=== PATIENT | female | born 1955 | race Caucasian/White ===

== ENCOUNTER 2016-09-20 22:19 | Emergency (ER) | payer MEDICARE ==
[~2016-09-20] VITALS: Ht 165.1 cm; Wt 84.0 kg
[~2016-09-20 22:19] MED LIST: LORA-392 PO; LORTA5 PO; METHO500 PO; PROM1SUP7 RECTAL; PROP20TA3 PO; ZANTTAB9 PO; ZOFR4TAB3 SL; ZOLP5TAB3 PO
[2016-09-20 23:00] VITALS: BP 198/84; PULSE 60; RESP 20; TEMP 98.6; O2SAT 97
[2016-09-20 23:20] VITALS: BP 174/84; PULSE 60; RESP 18; O2SAT 98
[2016-09-20] MEDS ORDERED: ONDANSETRON HCL 4 MG/2 ML VIAL IV PUSH ONE (23:45)
[2016-09-20] MEDS ORDERED: SODIUM CHLORIDE 0.9% FLUSH 10 ML FLUSH IVF PRN (23:45)
[2016-09-21 00:05] VITALS: O2SAT 98
--- NOTE | 2016-09-21 00:11 | RADRPT ---
EXAM DATE/TIME: 09/20/2016 23:46 [place] COMPARISON: CHEST SINGLE AP, September 17, 2014, 8:50. INDICATIONS : Chest discomfort, nausea for 3 days MEDICAL HISTORY : Hypertension. SURGICAL HISTORY : None. ENCOUNTER: Initial ACUITY: 3 days PAIN SCORE: 0/10 LOCATION: Bilateral chest FINDINGS: A single view of the chest demonstrates the lungs to be symmetrically aerated without evidence of mas s, infiltrate or effusion. The heart size is enlarged but stable.. Osseous structures are intact an d stable. CONCLUSION: No acute disease. No significant change has occurred. Floyd Churchill MD on September 21, 2016 at 0:10 Board Certified Radiologist. This report was verified electronically.
[2016-09-21 00:16] LABS: AUTOMATED NEUTROPHIL # 4.7 TH/MM3 (1.8-7.7); BASOPHIL % 0.5 % (0.0-2.0); EOSINOPHIL # 0.2 TH/MM3 (0-0.4); EOSINOPHIL % 2.8 % (0.0-4.0); HEMATOCRIT 43.8 % (35.0-46.0); HEMO FLAGS DIFF FINAL; LYMPH % 24.2 % (9.0-44.0); LYMPHOCYTE # 1.7 TH/MM3 (1.0-4.8); MEAN CELL VOLUME 94.1 FL (80.0-100.0); MEAN CORPUSCULAR HEMOGLOBIN 31.4 PG (27.0-34.0); MEAN CORPUSCULAR HGB CONC 33.4 % (32.0-36.0); MONO % 4.7 % (0.0-8.0); NEUT % 67.8 % (16.0-70.0); PLATELET COUNT 219 TH/MM3 (150-450); RED BLOOD COUNT 4.66 MIL/MM3 (4.00-5.30); RED CELL DISTRIBUTION WIDTH 13.1 % (11.6-17.2); WHITE BLOOD COUNT 6.9 TH/MM3 (4.0-11.0)
[2016-09-21 00:20] VITALS: BP 170/83; PULSE 55; RESP 18; O2SAT 98
[2016-09-21 00:24] LABS: CHLORIDE 109 MEQ/L (98-107); POTASSIUM 4.1 MEQ/L (3.5-5.1); SODIUM (NA) 142 MEQ/L (136-145)
[2016-09-21 00:28] LABS: ANION GAP 9 MEQ/L (5-15); BICARBONATE 24.4 MEQ/L (21.0-32.0); BLOOD UREA NITROGEN 14 MG/DL (7-18); MAGNESIUM 2.1 MG/DL (1.5-2.5)
[2016-09-21 00:29] LABS: APTT (PATIENT) 27.5 SEC (24.3-30.1); PROTHROMBIN TIME - PATIENT 10.5 SEC (9.8-11.6)
[2016-09-21 00:31] LABS: BLOOD, URINE NEG (NEG); GLUCOSE,URINE NEG (NEG); KETONE, URINE TRACE mg/dL (NEG); NITRITE,URINE NEG (NEG)
[2016-09-21 00:31] LABS: ALT (GPT) 18 U/L (10-53); AST (GOT) 17 U/L (15-37); GLOMERULAR FILTRATION RATE 63 ML/MIN (>89)
[2016-09-21 00:32] LABS: TOTAL BILIRUBIN ADULT 0.6 MG/DL (0.2-1.0)
[2016-09-21 00:33] LABS: ALKALINE PHOSPHATASE 75 U/L (45-117)
[2016-09-21] MEDS ORDERED: ZOLP5TAB3 PO (00:35)
[2016-09-21] MEDS ORDERED: PROP20TA3 PO (00:36)
[2016-09-21 00:38] LABS: CREATINE KINASE 66 U/L (26-192)
[2016-09-21 00:39] LABS: BACTERIA, URINE FEW /hpf; COMMENT (UR) CULT NOT INDICATED; CULTURE IF INDICATED CULT NOT INDICATED; RBC, URINE 0-2 /hpf (0-3); URINE COLOR YELLOW (YELLW/STRAW)
[2016-09-21] MEDS ORDERED: GABA300C5 PO (00:39)
[2016-09-21] MEDS ORDERED: ZOFR4TAB PO (00:39)
[2016-09-21] MEDS ORDERED: LISI10TA3 PO (00:40)
[2016-09-21] MEDS ORDERED: PARO10TA2 PO (00:40)
[2016-09-21] MEDS ORDERED: BIOT10TA PO (00:41)
[2016-09-21] MEDS ORDERED: ALLE10TA PO (00:42)
[2016-09-21 00:50] VITALS: BP 162/82; PULSE 59; RESP 18; O2SAT 97
--- NOTE | 2016-09-21 01:01 | PD ---
HPI Chief Complaint: Hypertension Time Seen by Provider: 23:31 Travel History International Travel<30 days: No Contact w/Intl Traveler<30days: No Traveled to known affect area: No History of Present Illness HPI 60-year-old female presents to the emergency department by private transportation for complaint of possible exacerbation her thyroid disorder. Patient has history of hyperthyroid. Patient states as of April she's been experiencing similar symptoms of blood pressure elevation tremulousness nausea vomiting stomach upset and poorly controlled hypertension. Patient is prescribed fosinopril for blood pressure control and as needed propranolol for heart rate and blood pressure control associated with the elevated function of her thyroid gland. Patient denies any upper extremity numbness tingling or weakness. Patient's had no bladder or bowel dysfunction. Patient's had no hematemesis coffee-ground emesis or bilious emesis. Patient was just recently seen by her heel compressor who has been monitoring her for these symptoms and is scheduling the patient to have imaging of the thyroid gland. Patient states TSH was 0.15 a few days ago. Patient denies other concerns or complaints. PFSH Past Medical History Narrative Medical Mitral valve regurgitation hypertension and thyroid dysfunction Cardiovascular Problems: Yes (MITRAL VALVE REGURGITATION) Diminished Hearing: No Hypertension: Yes Medical other: Yes (Grave's Disease ) Shingles: Yes Thyroid Disease: Yes Tetanus Vaccination: < 5 Years Influenza Vaccination: No Menopausal: Yes Past Surgical History Abdominal Surgery: Yes (GRISELDA ) Eye Surgery: Yes (Bilateral ) Hysterectomy: Yes Tonsillectomy: Yes (ADDENOIDS) Other Surgery: Yes (SINUS, NECK FUSION SURGERY, BACK ) Social History Alcohol Use: Yes (2 GLASSES OF WINE A DAY) Tobacco Use: No Substance Use: No Allergies-Medications (Allergen,Severity, Reaction): Coded Allergies: Indomethacin (Verified Allergy, Severe, 09/20/16) HEADACHE Latex (Verified Allergy, Severe, 09/20/16) HIVES Sulfa (Verified Allergy, Severe, 09/20/16) HIVES Uncoded Allergies: VALERIAN (Allergy, Unknown, RASH, 09/17/14) . Reported Meds & Prescriptions Reported Meds & Active Scripts Active Phenergan Supp (Promethazine HCl) 25 Mg Supp 25 Mg RECTAL Q6H PRN Phenergan (Promethazine HCl) 25 Mg Tablet 25 Mg PO Q6H PRN Reported Allergy Relief (Loratadine) 10 Mg Tab 10 Mg PO DAILY Biotin 10 Mg Tab 100 Mcg PO BID Paroxetine (Paroxetine HCl) 10 Mg Tab 10 Mg PO DAILY Lisinopril 10 Mg Tab 10 Mg PO DAILY Gabapentin 300 Mg Cap 300 Mg PO HS Zofran (Ondansetron HCl) 4 Mg Tab 4 Mg PO Q12HR PRN Propranolol (Propranolol HCl) 20 Mg Tab 20 Mg PO Q8HR PRN Zolpidem (Zolpidem Tartrate) 5 Mg Tab 5 Mg PO HS PRN Review of Systems Except as stated in HPI: all other systems reviewed are Neg General / Constitutional: No: Fever, Chills HENT: No: Lightheadedness, Congestion Cardiovascular: No: Chest Pain or Discomfort Respiratory: No: Shortness of Breath Gastrointestinal: Positive: Nausea, Vomiting, No: Abdominal Pain Genitourinary: No: Dysuria Musculoskeletal: No: Myalgias Skin: No Rash Neurologic: No: Weakness Psychiatric: No: Anxiety Hematologic/Lymphatic: No: Lymph Node Enlargement Physical Exam Narrative GENERAL: Well-developed well-nourished female in no acute distress no respiratory distress SKIN: Warm and dry. HEAD: Atraumatic. Normocephalic. EYES: Pupils equal and round. No scleral icterus. No injection or drainage. ENT: No nasal bleeding or discharge. Mucous membranes pink and moist. NECK: Trachea midline. No JVD. CARDIOVASCULAR: Regular rate and rhythm. RESPIRATORY: No accessory muscle use. Clear to auscultation. Breath sounds equal bilaterally. GASTROINTESTINAL: Abdomen soft, non-tender, nondistended. Hepatic and splenic margins not palpable. MUSCULOSKELETAL: Extremities without clubbing, cyanosis, or edema. No obvious deformities. NEUROLOGICAL: Awake and alert. No obvious cranial nerve deficits. Motor grossly within normal limits. Five out of 5 muscle strength in the arms and legs. Normal speech. PSYCHIATRIC: Appropriate mood and affect; insight and judgment normal. Data Data Last Documented VS Vital Signs Date Time Temp Pulse Resp B/P Pulse Ox O2 Delivery O2 Flow Rate FiO2 09/21/16 03:34 54 20 160/76 98 09/21/16 02:18 Room Air 09/20/16 23:00 98.6 Orders Electrocardiogram (09/20/16 23:32) Complete Blood Count With Diff (09/20/16 23:32) Comprehensive Metabolic Panel (09/20/16 23:32) Magnesium (Mg) (09/20/16 23:32) B-Type Natriuretic Peptide (09/20/16 23:32) Ckmb (Isoenzyme) Profile (09/20/16 23:32) Troponin I (09/20/16 23:32) Act Partial Throm Time (Ptt) (09/20/16 23:32) Prothrombin Time / Inr (Pt) (09/20/16 23:32) Urinalysis - C+S If Indicated (09/20/16 23:32) Chest, Single Ap (09/20/16 23:32) Ecg Monitoring (09/20/16 23:32) Iv Access Insert/Monitor (09/20/16 23:32) Oximetry (09/20/16 23:32) Sodium Chloride 0.9% Flush (Ns Flush) (09/20/16 23:45) Thyroid Stimulating Hormone (09/20/16 23:32) Ondansetron Inj (Zofran Inj) (09/20/16 23:45) Enalaprilat Inj (Vasotec Inj) (09/21/16 01:15) Metoclopramide Inj (Reglan Inj) (09/21/16 01:15) Promethazine Inj (Phenergan Inj) (09/21/16 03:00) Labs Laboratory Tests Test 09/21/16 09/21/16 00:00 00:20 White Blood Count 6.9 TH/MM3 Red Blood Count 4.66 MIL/MM3 Hemoglobin 14.6 GM/DL Hematocrit 43.8 % Mean Corpuscular Volume 94.1 FL Mean Corpuscular Hemoglobin 31.4 PG Mean Corpuscular Hemoglobin 33.4 % Concent Red Cell Distribution Width 13.1 % Platelet Count 219 TH/MM3 Mean Platelet Volume 8.4 FL Neutrophils (%) (Auto) 67.8 % Lymphocytes (%) (Auto) 24.2 % Monocytes (%) (Auto) 4.7 % Eosinophils (%) (Auto) 2.8 % Basophils (%) (Auto) 0.5 % Neutrophils # (Auto) 4.7 TH/MM3 Lymphocytes # (Auto) 1.7 TH/MM3 Monocytes # (Auto) 0.3 TH/MM3 Eosinophils # (Auto) 0.2 TH/MM3 Basophils # (Auto) 0.0 TH/MM3 CBC Comment DIFF FINAL Differential Comment Prothrombin Time 10.5 SEC Prothromb Time International 1.0 RATIO Ratio Activated Partial 27.5 SEC Thromboplast Time Sodium Level 142 MEQ/L Potassium Level 4.1 MEQ/L Chloride Level 109 MEQ/L Carbon Dioxide Level 24.4 MEQ/L Anion Gap 9 MEQ/L Blood Urea Nitrogen 14 MG/DL Creatinine 0.90 MG/DL Estimat Glomerular Filtration 63 ML/MIN Rate Random Glucose 113 MG/DL Calcium Level 8.5 MG/DL Magnesium Level 2.1 MG/DL Total Bilirubin 0.6 MG/DL Aspartate Amino Transf 17 U/L (AST/SGOT) Alanine Aminotransferase 18 U/L (ALT/SGPT) Alkaline Phosphatase 75 U/L Total Creatine Kinase 66 U/L Troponin I LESS THAN 0.02 NG/ML B-Type Natriuretic Peptide 130 PG/ML Total Protein 7.4 GM/DL Albumin 3.6 GM/DL Thyroid Stimulating Hormone 0.123 uIU/ML 3rd Gen Urine Color YELLOW Urine Turbidity CLEAR Urine pH 6.0 Urine Specific [place] 1.012 Urine Protein NEG mg/dL Urine Glucose (UA) NEG mg/dL Urine Ketones TRACE mg/dL Urine Occult Blood NEG Urine Nitrite NEG Urine Bilirubin NEG Urine Leukocyte Esterase SMALL Urine RBC 0-2 /hpf Urine WBC 3-5 /hpf Urine Squamous Epithelial 6-8 /hpf Cells Urine Bacteria FEW /hpf Microscopic Urinalysis Comment CULT NOT INDICATED MDM Medical Decision Making Medical Screen Exam Complete: Yes Emergency Medical Condition: Yes Medical Record Reviewed: Yes Interpretation(s) EKG: Sinus rhythm no acute ST elevation or injury pattern incomplete right bundle branch block Last Impressions Chest X-Ray 09/20/16 4231 Signed Impressions: Service Date/Time: Tuesday, September 20, 2016 23:46 - CONCLUSION: No acute disease. No significant change has occurred. Floyd Churchill MD CBC & BMP Diagram 09/21/16 00:00 TSH: 0.123, not elevated UA: cx not indicated troponin I: 0.02, not elevated Differential Diagnosis Uncontrolled hypertension, ACS, thyroid dysfunction, electrolyte disturbance, dehydration, UTI Narrative Course Patient placed on admitting officer IV access obtained specimens collected and sent for resulting Patient administered Vasotec 1.25 mg IV Additional dose of antibiotic administered Patient reported improvement of symptoms after Reglan and Phenergan blood pressure has improved and patient is stable for outpatient management and discharge Patient clinically improved stable for outpatient management and given prescription for Phenergan for control of nausea and vomiting recommend not to over use Diagnosis Primary Impression: Hypertension Qualified Code: I10 - Essential hypertension Additional Impression: Thyroid disease Referrals: [facility] 3 days Primary Care Physician 3 days Patient Instructions: General Instructions Additional Instructions: Follow clear liquid diet for next 12-24 hours advance as tolerated to land/ Johanna diet then regular Take medication as prescribed as needed for nausea and vomiting Follow-up with primary care provider Return to the emergency department for any concerns or change condition Take acetaminophen/Tylenol as needed for fever 100.4 Fahrenheit or greater Med/Other Pt SpecificInfo: Prescription(s) given Scripts Promethazine Supp (Phenergan Supp)25 Mg Supp25 Mg RECTAL Q6H PRN (NAUSEA OR VOMITING) #10 SUPP Ref 0 Prov:Sneha Millard MD 09/21/16 Promethazine (Phenergan)25 Mg [id number] Mg PO Q6H PRN (NAUSEA OR VOMITING) #7 TAB Ref 0 Prov:Sneha Millard MD 09/21/16 Disposition: 01 DISCHARGE HOME Condition: Stable Sneha Millard MD Sep 21, 2016 01:01
[2016-09-21] MEDS ORDERED: METOCLOPRAMIDE HCL 10 MG/2 ML VIAL IV PUSH ONE (01:15)
[2016-09-21] MEDS ORDERED: ENALAPRILAT 1.25 MG/ML VIAL IV PUSH ONE (01:15)
[2016-09-21 02:18] VITALS: BP 159/86; PULSE 52; RESP 20; O2SAT 97
[2016-09-21] MEDS ORDERED: PROMETHAZINE INJ 25 MG/ML VIAL IM ONE (03:00)
[2016-09-21] MEDS ORDERED: PROM1SUP7 RECTAL (03:20)
[2016-09-21] MEDS ORDERED: PROM25TA10 PO (03:20)
[2016-09-21 03:34] VITALS: BP 160/76
--- NOTE | 2016-09-21 15:03 | EKG ---
Date Performed: 09/20/2016 Time Performed: 23:49:55 PTAGE: 60 years EKG: SINUS BRADYCARDIA BORDERLINE LEFT AXIS DEVIATION INCOMPLETE RIGHT BUNDLE BRANCH BLOCK Juliano red to previous tracing, the patient is now bradycardic BORDERLINE ECG PREVIOUS TRACING : 09/17/2014 08.15 DOCTOR: Mary Rouse Interpretating Date/Time 09/21/2016 14:58:16
== END 2016-09-21 03:37 | disposition home or self-care (01) ==
LOC: PHED 22:19
DX: I10 Essential (primary) hypertension (principal); E05.00 Thyrotoxicosis with diffuse goiter without thyrotoxic crisis or storm; R00.1 Bradycardia, unspecified; Z79.899 Other long term (current) drug therapy
CPT/HCPCS: 71010; 80053; 81001; 82550; 83735; 83880; 84443; 84484; 85025; 85610; 85730; 93005; 96372; 96374; 96375; 99285; J2405; J2550; J2765